=== PATIENT | male | born 1995 | race Caucasian/White ===

== ENCOUNTER 2019-04-05 06:28 | Emergency (ER) | payer BC ==
[~2019-04-05] VITALS: Ht 190.5 cm; Wt 145.1 kg
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
[2019-04-05] MEDS ORDERED: IBUPROFEN 400 MG TABLET ONE (06:44)
[2019-04-05] MEDS: IBUPROFEN 400 MG TABLET PO ONE (06:45)
--- NOTE | 2019-04-05 07:08 | NUR ---
PT IS BACK FROM THE CT SCAN.
--- NOTE | 2019-04-05 07:30 | NUR ---
Patient discharged to in stable condition. Written and verbal after care instructions given. Patient verbalizes understanding of instruction. Assisted patient to waiting room via wheelchair as mother will pick him up.
[2019-04-05 07:32] VITALS: BP 132/80
== END 2019-04-05 07:32 | disposition home or self-care (01) ==
LOC: ER 06:29
DX: S13.4XXA Sprain of ligaments of cervical spine, initial encounter (principal); S80.02XA Contusion of left knee, initial encounter; S40.011A Contusion of right shoulder, initial encounter; V49.49XA Driver injured in collision with other motor vehicles in traffic accident, initial encounter; Y93.89 Activity, other specified; Y92.488 Other paved roadways as the place of occurrence of the external cause; Y99.8 Other external cause status
CPT/HCPCS: 72040-TC; 73030-TC; 73564-TC